=== PATIENT | female | born 1995 | race Hispanic/Latino ===

== ENCOUNTER 2021-01-13 08:34 | Emergency (ER) | payer MEDICAID ==
[~2021-01-13] VITALS: Ht 162.6 cm; Wt 72.6 kg
[2021-01-13] MEDS ORDERED: IBUP-14 PO (08:51)
[2021-01-13 09:05] VITALS: BP 126/74
== END 2021-01-13 09:12 | disposition home or self-care (01) ==
LOC: EDH 08:34
DX: K42.9 Umbilical hernia without obstruction or gangrene (principal)

== ENCOUNTER 2022-08-13 00:14 | Emergency (ER) | payer MEDICAID ==
[~2022-08-13] VITALS: Ht 162.6 cm; Wt 71.7 kg
[~2022-08-13 00:14] MED LIST: IBUP-14 PO
[2022-08-13 00:55] LABS: BASOPHILS % (AUTO) 0.5 % (0.0-5.0); EOSINOPHILS % (AUTO) 1.8 % (0.0-8.0); HEMATOCRIT 36.8 % (36-48); LYMPHOCYTES % (AUTO) 38.4 % (21.0-51.0); MEAN CORPUSCULAR HEMOGLOBIN 32.6 pg (27.0-33.0); MEAN CORPUSCULAR HGB CONC 34.2 g/dL (32.0-36.0); MEAN CORPUSCULAR VOLUME 95.3 fL (79-99); MONOCYTES % (AUTO) 6.8 % (3.0-13.0); NEUTROPHILS % (AUTO) 52.3 % (40.0-77.0); PLATELET COUNT (AUTO) 311 K/uL (130-400); RED BLOOD CELL COUNT(AUTO) 3.86 MIL/uL (4.00-5.50); RED CELL DISTRIBUTION WIDTH 12.6 % (11.0-15.5); WHITE BLOOD COUNT (AUTO) 6.6 K/uL (4.8-10.8)
[2022-08-13 01:08] LABS: CREATININE 0.8 mg/dL (0.5-1.5); POTASSIUM 3.1 mmol/L (3.5-5.1)
[2022-08-13 01:12] LABS: ALBUMIN 4.3 g/dL (3.5-5.0); TOTAL PROTEIN, SERUM 7.7 g/dL (6.0-8.3)
[2022-08-13 01:21] VITALS: BP 121/75
[2022-08-13 01:30] LABS: APPEARANCE,URINE CLEAR (CLEAR); BILIRUBIN,URINE NEGATIVE (NEGATIVE); COLOR,URINE LIGHT-YELLOW (YELLOW); GLUCOSE, URINE (UA) NEGATIVE (NEGATIVE); KETONES,URINE NEGATIVE (NEGATIVE); LEUKOCYTE ESTERASE ,URINE 250 Leu/uL (NEGATIVE); NITRATE,URINE NEGATIVE (NEGATIVE); OCCULT BLOOD,URINE NEGATIVE (NEGATIVE); PROTEIN,URINE NEGATIVE (NEGATIVE); UROBILINOGEN,URINE 0.2 mg/dL (0.2-1.0)
[2022-08-13 01:37] LABS: SQUAMOUS EPITHELIAL CELL,UR FEW /HPF (0-2)
[2022-08-13] MEDS ORDERED: IBUP-1493 PO (01:38)
== END 2022-08-13 02:16 | disposition home or self-care (01) ==
LOC: EDH 00:14
DX: N34.2 Other urethritis (principal); N89.8 Other specified noninflammatory disorders of vagina; Z98.890 Other specified postprocedural states
CPT/HCPCS: 36415; 80053; 81001; 81025; 83690; 85025; 87088; 87486; 87797

== ENCOUNTER 2025-02-25 13:48 | Emergency (ER) | payer SELFPAY ==
[~2025-02-25] VITALS: Ht 162.6 cm; Wt 74.8 kg
[2025-02-25 13:55] VITALS: O2SAT 99
[2025-02-25 14:31] LABS: IMMATURE GRANULOCYTE ABSOLUTE 0.04 K/uL (0-1); NUCLEATED RED BLOOD CELLS 0.0 % (0.0-0.19); PLATELET COUNT (AUTO) 296 K/uL (130-400); RED BLOOD CELL COUNT(AUTO) 3.97 MIL/uL (4.00-5.50); RED CELL DISTRIBUTION WIDTH 12.9 % (11.0-15.5); WHITE BLOOD COUNT (AUTO) 11.1 K/uL (4.8-10.8)
[2025-02-25 14:39] VITALS: TEMP 99.9
[2025-02-25] MEDS: 0.9%NACL 1000ML 1,000 ML IV ONE (14:39)
[2025-02-25 14:42] LABS: CREATININE 0.9 mg/dL (0.5-1.0); GLOMERULAR FILTR. RATE CALC 89.0 mL/min (>90); GLUCOSE,RANDOM 104.0 mg/dL (70-105); SODIUM SERUM 140.0 mmol/L (136-145); UREA NITROGEN, BLOOD 11.0 mg/dL (7-18)
--- NOTE | 2025-02-25 14:43 | ERN ---
General Chief Complaint: Flank Pain Stated Complaint: FLANK PAIN/ NAUSEA/ FEVER Time Seen by MD: 13:53 Source: patient History of Present Illness Initial Comments My patient, 29-year-old female, presented to the emergency department with complaint of left flank pain. She states that pain started 3 days ago and it is more generalized on the left side and does not radiate. It is associated with chills and low-grade fever for the past few days. She denies dysuria, or urinary frequency. Timing/Duration: constant Severity: moderate Allergies: Coded Allergies: No Known Drug Allergies (Unverified Allergy, Unknown, 01/13/21) Home Meds Active Scripts Acetaminophen (Tylenol) 500 Mg Tab, 1 TAB PO [id number] PRN for pain or fever for 10 Days, #20 TAB 0 Refills Prov:CORY CORADO MD 02/25/25 Cephalexin Monohydrate (Keflex) 500 Mg Cap, 1 CAP PO TID for 7 Days, #30 CAP 0 Refills Prov:CORY CORADO MD 02/25/25 Ibuprofen (Motrin/Advil) 800 Mg Tab, 800 MG PO TID, #30 TAB Prov:SOUMYA ORELLANA MD 08/13/22 Ibuprofen (Advil) 200 Mg Tablet, 600 MG PO Q6HPRN PRN for PAIN LEVEL 1 TO 5 for 7 Days, #30 TAB 0 Refills take with food Prov:FEDE LAM MD 01/13/21 Past Medical History Past Medical History: No Pertinent History Past Surgical History: BTL Surgical History Other: TUBAL LIGATION Family History Family History: Negative Social History Social History: Negative Constitutional: (+) chills, (+) fever, (+) weakness EENTM: (-) eye pain, (-) blurred vision, (-) tearing, (-) double vision, (-) ear pain, (-) ear discharge, (-) nose pain, (-) nose congestion, (-) throat pain, (-) Throat swelling, (-) mouth pain, (-) tooth pain, (-) mouth swelling, (-) other documentation Respiratory: (-) cough, (-) orthopnea, (-) short of breath, (-) stridor, (-) wheezing, (-) other documentation Cardiovascular: (-) chest pain, (-) edema, (-) palpitations, (-) syncope, (-) dyspnea on exertion, (-) other documentation Gastrointestinal/Abdominal: (+) nausea; (-) vomiting, (-) diarrhea, (-) abdominal pain, (-) abdominal distention, (-) constipation, (-) rectal bleeding, (-) dark stool/melena, (-) other documentation Genitourinary: (-) vaginal discharge, (-) vaginal bleeding, (-) dysuria, (-) frequency, (-) hematuria, (-) pain, (-) other documentation Musculoskeletal: (+) back pain, (+) Flank Pain; (-) Neck pain, (-) joint pain, (-) joint swelling, (-) muscle pain, (-) muscle stiffness, (-) gout, (-) other documentation Skin: (-) laceration, (-) contusion, (-) abrasion, (-) abscess, (-) rash, (-) change in color, (-) change in hair, (-) change in nails, (-) diaphoresis, (-) dryness, (-) other documentation Neuro: (-) altered mental status, (-) headache, (-) syncope, (-) paralysis, (-) numbness, (-) seizure, (-) pre-existing deficit, (-) tremors, (-) weakness, (-) dizziness, (-) slurred speech, (-) vertigo, (-) other documentation Hematologic/Lymphatic: (-) anemia, (-) blood clots, (-) easy bleeding, (-) easy bruising, (-) swollen glands, (-) other documentation Physical Exam General Appearance: (+) apparent distress Orientation: (+) alert, (+) oriented x 3 Head/Face Trauma: No Eye: bilateral eye normal inspection Ear, Nose, Throat: (+) hearing grossly normal, (+) normal ENT inspection, (+) moist mucous membraine Neck: (+) normal inspection, (+) supple, (+) full range of motion Respiratory: (+) chest non-tender, (+) lungs clear, (+) well ventilated Heart: (+) regular, (+) no gallop Vascular: (+) no edema, (+) normal peripheral pulse Gastrointestinal: (+) soft, (+) non-tender, (+) no organomegaly Back: (+) normal inspection, (+) no vertebral tenderness Extremities: (+) normal range of motion, (+) non-tender, (+) normal inspection Neurologic/Psychiatric: (+) normal speech, (+) no motor defecits, (+) no sensory deficits, (+) normal gait, (+) normal mood/affect Skin: (+) normal color Results Laboratory and Microbiology Lab and Micro Result Laboratory Tests Test 02/25/25 14:19 02/25/25 16:20 White Blood Count 11.1 K/uL (4.8-10.8) H Red Blood Count 3.97 MIL/uL (4.00-5.50) L Hemoglobin 13.0 g/dL (12.0-16.0) Hematocrit 37.7 % (36-48) Mean Corpuscular Volume 95.0 fL (79-99) Mean Corpuscular Hemoglobin 32.7 pg (27.0-33.0) Mean Corpuscular Hemoglobin Concent 34.5 g/dL (32.0-36.0) Red Cell Distribution Width 12.9 % (11.0-15.5) Platelet Count 296 K/uL (130-400) Mean Platelet Volume 10.6 fL (7.5-10.5) H Immature Granulocyte % (Auto) 0.4 % (0-1) Neutrophils (%) (Auto) 78.3 % (40.0-77.0) H Lymphocytes (%) (Auto) 12.0 % (21.0-51.0) L Monocytes (%) (Auto) 8.8 % (3.0-13.0) Eosinophils (%) (Auto) 0.3 % (0.0-8.0) Basophils (%) (Auto) 0.2 % (0.0-5.0) Neutrophils # (Auto) 8.7 K/uL (1.8-7.7) H Lymphocytes # (Auto) 1.3 K/uL (1.0-4.8) Monocytes # (Auto) 1.0 K/uL (0.1-1.0) Eosinophils # (Auto) 0.03 K/uL (0.00-0.70) Basophils # (Auto) 0.02 K/uL (0.00-0.20) Absolute Immature Granulocyte (auto 0.04 K/uL (0-1) Nucleated Red Blood Cells 0.0 % (0.0-0.19) Sodium Level 140 mmol/L (136-145) Potassium Level 3.2 mmol/L (3.5-5.1) L Chloride Level 100 mmol/L (101-111) L Carbon Dioxide Level 27 mmol/L (21-32) Blood Urea Nitrogen 11 mg/dL (7-18) Creatinine 0.9 mg/dL (0.5-1.0) Glomerular Filtration Rate Calc 89 mL/min (>90) Random Glucose 104 mg/dL (70-105) Lactic Acid Level 1.1 mmol/L (0.8-2.5) Total Calcium 9.0 mg/dL (8.5-10.1) Magnesium Level 1.90 mg/dL (1.80-2.40) Total Bilirubin 1.0 mg/dL (0.2-1.0) Direct Bilirubin 0.2 mg/dL (0.0-0.3) Aspartate Amino Transf (AST/SGOT) 21 U/L (10-37) Alanine Aminotransferase (ALT/SGPT) 29 U/L (12-78) Alkaline Phosphatase 82 U/L (50-136) Total Protein 8.0 g/dL (6.0-8.3) Albumin 3.7 g/dL (3.5-5.0) Urine Color YELLOW (YELLOW) Urine Appearance CLEAR (CLEAR) Urine pH 5.5 (5.0-8.0) Urine Specific [place] 1.015 (1.001-1.031) Urine Protein TRACE mg/dL (NEGATIVE) H Urine Glucose (UA) NEGATIVE mg/dL (NEGATIVE) Urine Ketones 15 mg/dL (NEGATIVE) H Urine Occult Blood MODERATE (NEGATIVE) H Urine Nitrate POSITIVE (NEGATIVE) H Urine Bilirubin NEGATIVE mg/dL (NEGATIVE) Urine Urobilinogen 1.0 mg/dL (0.2-1.0) Urine Leukocyte Esterase SMALL Joe/uL (NEGATIVE) H Urine RBC 0-1 /HPF (0-1) Urine WBC 6-10 /HPF (0-1) H Urine Squamous Epithelial Cells 2-5 /HPF (0-2) Urine Transitional Epithelial Cells Rare /HPF (None Seen) Urine Bacteria MANY /HPF (None Seen) Urine HCG, Qualitative NEGATIVE (NEGATIVE) Labs Reviewed?: Yes EKG/XRAY/US/CT/MRI Ultrasound Comment PATIENT: SCOTTY MOSHER MR#: [id number] : 1995 SEX: F AGE: 29 LOCATION: [facility] ORDER 57 STATUS: [facility] REPORT#: [id number] SERVICE 56 REASON: Left flank pain. Rule out nephrolithiasis. ORDERING PHYSICIAN: CORY CORADO MD PROCEDURE: RENAL - US RENAL SONOGRAM EXAM: US Retroperitoneum, Renal. CLINICAL HISTORY: Left flank pain. Rule out nephrolithiasis. TECHNIQUE: Real-time ultrasound of the retroperitoneum with image documentation. COMPARISON: None provided. FINDINGS: RIGHT KIDNEY: Measures 10 x 4.5 x 3.8 cm. Normal in size and contour. No renal mass or calculus. No hydronephrosis. LEFT KIDNEY: Measures 10.5 x 5.1 x 5.7 cm. Appears edematous. Normal in size and contour. No renal mass or calculus. No hydronephrosis. BLADDER: Partially distended bladder. Unremarkable as visualized. MISCELLANEOUS: No other significant abnormality evident. IMPRESSION: Left renal cortical edema without hydronephrosis or calculus. Further evaluation with CT abdomen is suggested. /[place] DICTATED BY: CYNTHIA BAEZA Jr., MD DATE: 02/25/251707 ELECTRONICALLY SIGNED BY: CYNTHIA BAEZA Jr., MD DATE: 02/25/251707 [facility] MDM: Differential diagnosis: Acute pyelonephritis, acute complicated urinary tract infection This patient, 29-year-old female, presented to the emergency department with complaint of left flank pain. She also complained of chills and low-grade fever. * On presentation, she was noted to be tachycardic. Blood pressure was stable. She had low-grade fever, 99.9. * CBC showed mild leukocytosis. * CMP and magnesium were taken. Patient was noted to have hypokalemia. * She was given IV potassium but due to irritation with IV potassium, she was switched to p.o. * Lactic acid was within normal range. * UA profile showed positive nitrates, bacteria and leukocyte esterase. * She was started on IV fluid bolus as well as Tylenol and phenazopyridine. * She was also given ceftriaxone 1 g. * Patient states that she feels much better. She is being discharged home with instructions to start Keflex t.i.d.. ED Course Orders Procedure Category Date Status Time Cbc With Differential LAB 02/25/25 Complete 14:05 Basic Metabolic Panel LAB 02/25/25 Complete 14:05 Hepatic Function Panel LAB 02/25/25 Complete 14:05 Magnesium LAB 02/25/25 Complete 14:05 Urinalysis Profile LAB 02/25/25 Complete 14:05 0.9%Nacl 1000ml (Ns PHA 02/25/25 Complete 1000ml) 14:30 Acetaminophen 500mg PHA 02/25/25 Complete Tab (Tylenol 500mg T 14:30 Lactic Acid LAB 02/25/25 Complete 14:21 Potassium Chloride PHA 02/25/25 Complete 20meq/100ml ([place] 15:00 Potassium Chloride PHA 02/25/25 Complete 20meq/100ml ([place] 15:00 Phenazopyridine Hcl PHA 02/25/25 Complete 200 Mg Tab ([place] 15:00 ,Urine Test LAB 02/25/25 Complete 14:05 Us Renal Sonogram US 02/25/25 Resulted 14:57 Ceftriaxone 1g Vial PHA 02/25/25 In Process (Rocephine 1g Inj) 16:00 Culture Urine LENNIE 02/25/25 In Process 16:41 Potassium Bicarb/Cit PHA 02/25/25 Complete Ac 25meq (K-Lyte Ta 17:00 Current Medications Medications (Trade) Dose Ordered Sig/Bonnie Route PRN Reason Start Time Stop Time Status Last Admin Dose Admin Acetaminophen (TYLenol 500MG TAB) 500 mg ONCE ONCE PO 02/25/25 14:30 02/25/25 14:31 DC 02/25/25 14:39 Ceftriaxone Sodium (ROCEphine 1G INJ) 1 gm Q24H IVPB 02/25/25 16:00 03/07/25 15:59 02/25/25 16:59 Phenazopyridine HCl (PYRIdium HCL 200 MG TAB) 200 mg ONCE ONCE PO 02/25/25 15:00 02/25/25 15:01 DC 02/25/25 15:18 Potassium Bicarbonate (K-Lyte Tablet Eff 25 Meq Tablet.eff) 25 meq ONCE ONCE PO 02/25/25 17:00 02/25/25 17:01 DC 02/25/25 16:59 Potassium Chloride 100 ml @ 50 mls/hr PROTOCOL IV 02/25/25 15:00 02/25/25 14:50 DC Potassium Chloride 100 ml @ 50 mls/hr PROTOCOL ONCE IV 02/25/25 15:00 02/25/25 16:59 DC 02/25/25 15:19 Sodium Chloride 1,000 ml @ 0 mls/hr Q0M ONCE IV 02/25/25 14:30 02/25/25 14:31 DC 02/25/25 14:39 Vital Signs Date Time Temp Pulse Resp B/P (MAP) Pulse Ox O2 Delivery O2 Flow Rate FiO2 02/25/25 14:39 99.9 02/25/25 13:53 99.9 121 18 125/72 99 Room Air 0 DX & DISP Disposition: Discharge Departure Impression: Primary Impression: Acute pyelonephritis Critical Time: 60 minutes Condition: Stable Scripts Acetaminophen (Tylenol) 500 Mg Tab 1 TAB PO [id number] PRN for pain or fever for 10 Days, #20 TAB 0 Refills Prov: CORY CORADO MD 02/25/25 Cephalexin Monohydrate (Keflex) 500 Mg Cap 1 CAP PO TID for 7 Days, #30 CAP 0 Refills Prov: CORY CORADO MD 02/25/25 Additional Instructions: FOLLOW-UP WITH PRIMARY CARE PROVIDER IN 1 TO 2 DAYS. TAKE MEDICATIONS DIRECTED HERE IN THE EMERGENCY ROOM. OKAY TO CONTINUE HOME MEDICATIONS UNLESS OTHERWISE DISCUSSED DURING YOUR VISIT IN THE EMERGENCY ROOM TODAY. RETURN TO YOUR NEAREST EMERGENCY ROOM IF SYMPTOMS WORSEN OR IF THERE IS NO IMPROVEMENT. CALL 911 IF YOU NEED IMMEDIATE ASSISTANCE. TAKE TYLENOL [id number] NEEDED AND IF NO CONTRAINDICATIONS ARE PRESENT. INCREASE ORAL HYDRATION. A WOUND CULTURE OR URINE CULTURE WAS ORDERED HERE IN THE EMERGENCY ROOM DEPARTMENT PLEASE FOLLOW-UP WITH PRIMARY CARE PROVIDER AND ADVISE THEM TO GET REPORTS FROM OUR FACILITY. IF YOU HAD ANY JOSE ANTONIO WRAP/SPLINTS THAT WERE APPLIED HERE, PLEASE DO NOT REMOVE THEM UNTIL YOU SEE YOUR PRIMARY CARE OR SPECIALTY. Referrals: Referrals: YAMIL JOHNSTON TOW OPERATOR (PCP) ELVIS DURANT MD Time of Disposition: 17:00 CORY CORADO MD Feb 25, 2025 14:43 GRETEL MELISSA MD Feb 25, 2025 17:03
[2025-02-25 14:48] LABS: ASPARTATE AMINOTRANSFERASE 21.0 U/L (10-37); TOTAL PROTEIN, SERUM 8.0 g/dL (6.0-8.3)
[2025-02-25] MEDS: PHENAZOpyridine HCL 200 MG TAB 200 MG TABLET PO ONE (15:18)
--- NOTE | 2025-02-25 16:09 | HMCIMG ---
EXAM: US Retroperitoneum, Renal. CLINICAL HISTORY: Left flank pain. Rule out nephrolithiasis. TECHNIQUE: Real-time ultrasound of the retroperitoneum with image documentation. COMPARISON: None provided. FINDINGS: RIGHT KIDNEY: Measures 10 x 4.5 x 3.8 cm. Normal in size and contour. No renal mass or calculus. No hydronephrosis. LEFT KIDNEY: Measures 10.5 x 5.1 x 5.7 cm. Appears edematous. Normal in size and contour. No renal mass or calculus. No hydronephrosis. BLADDER: Partially distended bladder. Unremarkable as visualized. MISCELLANEOUS: No other significant abnormality evident. IMPRESSION: Left renal cortical edema without hydronephrosis or calculus. Further evaluation with CT abdomen is suggested. /[place]
[2025-02-25 16:39] LABS: APPEARANCE,URINE CLEAR (CLEAR); GLUCOSE, URINE (UA) NEGATIVE (NEGATIVE); LEUKOCYTE ESTERASE ,URINE SMALL Leu/uL (NEGATIVE); NITRATE,URINE POSITIVE (NEGATIVE); OCCULT BLOOD,URINE MODERATE (NEGATIVE)
[2025-02-25 16:40] LABS: ADD UA MICROSCOPIC YES; HCG,QUALITATIVE URINE NEGATIVE (NEGATIVE)
--- NOTE | 2025-02-25 16:51 | NUR ---
PER MD RESIDENT, POTASSIUM STOPPED DUE TO PATIENT NOT TOLERATING POTASSIUM IV. PATIENT STATED HAVING A LOT OF PAIN AT THE IV SITE.
[2025-02-25 17:39] VITALS: BP 106/63; PULSE 93; RESP 16; TEMP 100.2
== END 2025-02-25 17:51 | disposition home or self-care (01) ==
LOC: EDH 13:48
DX: N10 Acute pyelonephritis (principal); Z79.1 Long term (current) use of non-steroidal anti-inflammatories (NSAID); Z98.51 Tubal ligation status
CPT/HCPCS: 99285; 96365; 76770; 96361; 80076; 83735; 80048; 85025; 87086 ×2; 87186; 83605; 81001; 81025; 36415; J7030; J0696; J3480